=== PATIENT | male | born 2000 | race African-American/Black ===

== ENCOUNTER 2022-06-03 11:43 | Emergency (ER) | payer MEDICAID ==
[~2022-06-03] VITALS: Ht 182.9 cm; Wt 59.0 kg
[2022-06-03 11:45] VITALS: BP 127/54
[2022-06-03] MEDS ORDERED: CEFTRIAXONE SODIUM 1 G/VIAL IM ONE (14:15)
[2022-06-03] MEDS ORDERED: DOXY100T2 MT (14:49)
[2022-06-03] MEDS ORDERED: VALA10002 MT (14:49)
== END 2022-06-03 15:20 | disposition home or self-care (01) ==
LOC: ER 11:43
DX: Z20.2 Contact with and (suspected) exposure to infections with a predominantly sexual mode of transmission (principal)
CPT/HCPCS: 86592; 86694; 86695; 87491; 87591; 96372; 99283; J0696